=== PATIENT | male | born 2000 | race Asian ===

== ENCOUNTER 2020-07-14 14:04 | Observation (INO) ==
[2020-07-14] MEDS ORDERED: SODIUM CHLORIDE 0.9% 1000ML 500 ML IV ONE (14:22)
[2020-07-14] MEDS ORDERED: KETOROLAC 30 MG/ML VIAL IV ONE (14:22)
--- NOTE | 2020-07-14 14:27 | Emergency Department Note ---
Impression & Plan Primary spontaneous pneumothorax, Back pain ED Provider Note NAME: YOLI CAMARILLO AGE: 19 SEX: M : 2000 ARRIVES VIA: Walk-In INFORMANT: Patient ED PROVIDER(S): Yosi Busby DO CHIEF COMPLAINT: right upper back pain HPI: Patient is a 19-year-old male who presents the ER for right upper back pain. It started about 30 minutes prior to arrival. It is just medial to his scapula. It improves when he bends over worsened when he sits up straight or lays back. Certain movements of his arm also make it slightly worse. He notes that breathing makes it worse as well. He just recently traveled from [place] and drove all the way to [employer]. He notes he is dropping his sister off. He denies any shortness of breath or chest pain. No belly pain nausea vomiting or diarrhea. No cough or runny nose. Notes that initially it started as a burning pain and now describes as a sharp stabbing pain in nature. No other exacerbating or remitting factors. He is never had this before. ROS: See above HPI for pertinent positives & negatives. A total of 10 systems reviewed and were otherwise negative. PAST MEDICAL HISTORY:See Below PAST SURGICAL HISTORY:See Below FAMILY HISTORY:See Below SOCIAL HISTORY:See Below HOME MEDICATIONS:See Below ALLERGIES:See Below VITALS:See Below PHYSICAL EXAMINATION: GENERAL: Sitting up in bed, alert, well appearing, well nourished, no distress, non-toxic EYE EXAM: normal conjunctiva. OROPHARYNX: no exudate, no erythema, lips, buccal mucosa, and tongue normal and mucous membranes are moist NECK: supple, no nuchal rigidity, no adenopathy, non-tender LUNGS: Clear to auscultation. Normal chest wall mechanics HEART: no murmurs, S1 normal and S2 normal ABDOMEN: abdomen soft, non-tender, normo-active bowel sounds, no masses, no rebound or guarding. BACK: Back is symmetrical on inspection and there is no deformity, no midline tenderness, tenderness just medial to the right scapula. Pain worsened with movement and palpation. SKIN: no rashes and no bruising UPPER EXTREMITIES: Flexion-extension of the shoulders, elbows, wrist, grasp 5 out of 5. Radial pulse 2 out of 4. Gross sensation intact. LOWER EXTREMITIES: No pitting edema. NEURO EXAM: Normal sensorium, cranial nerves II-XII grossly intact, normal speech, no gross weakness of arms, no gross weakness of legs. MEDICAL DECISION MAKING: Patient is a 19-year-old male that presents the ER for right upper back pain. H e notes that the pain is pleuritic in nature. This occurred while he was driving. IV was established blood work was obtained. Labs show no significant leukocytosis or anemia. INR slightly up at 1.2. D-dimer was negative and a low risk patient. BMP with LFTs were unremarkable. Chest x-ray supports a right- sided pneumothorax which is small to moderate. X-rays of the thoracic spine were unremarkable. Discussed with pulmonology who reviewed the x-rays and agreed with holding on pneumothorax. Patient was already placed on nonrebreather. Discussed with the hospitalist admitted for further work-up. Triage Nursing notes reviewed. Prior medical records reviewed Vital Signs: reviewed and remarkable for no significant abnormalities Differential diagnosis: Differential diagnoses includes but is not limited to lumbar radiculopathy, kid sameera stone, muscle strain, facture, cauda equina, mass, and disc herniation. ER treatment provided: See below Diagnostics interpreted by me: ECG:Sinus rhythm n rate 66 Normal axis No PVCs Normal QTC Cardiac Monitoring: An order was placed for continuous cardiac monitoring. The monitor shows a rate of 69 with sinus rhythm. Laboratory studies: As stated above and show below. Imaging studies: X-rays as discussed above Consultation(s): Discussed with pulmonology/straight cutter machine who agreed with admission and holding chest tube Discussed with Dr. Shen Tran for admission ED COURSE: Procedures: none Critical Care: None Past Med/Surg History Medical History (Updated 07/14/20 @ 17:39 by Yosi Busby DO) No significant medical problems Surgical History (Updated 07/14/20 @ 17:12 by Shen Tran MD) No history of previous surgery Family History (Updated 07/14/20 @ 17:13 by Shen Tran MD) Father Gout Social History (Updated 07/14/20 @ 17:12 by Shen Tran MD) Smoking Status: Never smoker Hx Alcohol Use: No Hx Substance Use: No Preferred Language: Divehi Feels Safe at Home: Yes Allergies Allergies Allergy/AdvReac Type Severity Reaction Status Date / Time coconut Allergy Mild ITCHY MOUTH Verified 07/14/20 16:15 Home Meds Home Medications Medication Instructions Recorded Confirmed Gummy Vitamin Pack 12 tabs PO DAILY 07/14/20 07/14/20 Results & Data (ED) Vital Signs Vital Signs - 24 hr 07/14/20 14:06 07/14/20 14:49 07/14/20 15:55 Temperature 36.7 C Temperature Source Oral Pulse Rate 92 H 76 Pulse Rate from SpO2 Sensor 73 Pulse Rhythm Regular Respiratory Rate 18 18 21 Respiratory Effort / Characteristics Non-Labored Spontaneous Respiratory Depth Normal Respiratory Pattern Regular Blood Pressure 124/65 131/77 Blood Pressure Mean 84 88 Pulse Oximetry 100 100 Oxygen Delivery Method Room Air Oxygen Flow Rate Sepsis Recent Fever Within 48 Hours No Sepsis New/Unexplained Change in Mental Status No Sepsis Action Taken by Nursing No Action Required 07/14/20 15:57 07/14/20 16:00 07/14/20 16:01 Temperature Temperature Source Pulse Rate 73 80 71 Pulse Rate from SpO2 Sensor 74 82 72 Pulse Rhythm Respiratory Rate 15 17 17 Respiratory Effort / Characteristics Respiratory Depth Respiratory Pattern Blood Pressure 133/72 Blood Pressure Mean 83 Pulse Oximetry 100 100 100 Oxygen Delivery Method Non-rebreather Oxygen Flow Rate 15 Sepsis Recent Fever Within 48 Hours Sepsis New/Unexplained Change in Mental Status Sepsis Action Taken by Nursing 07/14/20 16:30 Temperature Temperature Source Pulse Rate 65 Pulse Rate from SpO2 Sensor 65 Pulse Rhythm Respiratory Rate 13 Respiratory Effort / Characteristics Respiratory Depth Respiratory Pattern Blood Pressure 103/66 Blood Pressure Mean 78 Pulse Oximetry 100 Oxygen Delivery Method Oxygen Flow Rate Sepsis Recent Fever Within 48 Hours Sepsis New/Unexplained Change in Mental Status Sepsis Action Taken by Nursing Laboratory Data Result diagrams: 07/14/20 14:30 07/14/20 14:30 Lab Results 07/14/20 07/14/20 07/14/20 Range/Units 14:30 14:30 14:30 WBC 6.41 (4.8-10.8) K/uL RBC 5.26 (4.7-6.1) M/uL Hgb 16.4 (14.0-18.0) g/dL Hct 46.4 (42-52) % MCV 88.2 (80-100) fL MCH 31.2 (25-34) pg MCHC 35.3 (32-36) g/dL RDW Std Deviation 38.9 (36.4-46.3) fL RDW Coeff of Ramon 12.1 (11.5-14.5) % Plt Count 307 (130-400) K/uL MPV 9.6 (7.4-10.4) fL Immature Gran % (Auto) 0.2 % Neut % (Auto) 63.3 % Lymph % (Auto) 29.3 % [place] % (Auto) 6.1 % Eos % (Auto) 0.8 % Baso % (Auto) 0.3 % Neut # (Auto) 4.06 (1.4-6.5) K/uL Lymph # (Auto) 1.88 (1.2-3.4) K/uL [place] # (Auto) 0.39 (0.11-0.59) K/uL Eos # (Auto) 0.05 (0-0.5) K/uL Baso # (Auto) 0.02 (0-0.2) K/uL Immature Gran # (Auto) 0.01 (0.00-0.02) K/uL PT 12.4 H (9.0-12.0) Seconds INR 1.2 H (0.9-1.1) D-Dimer < 190 (0-500) ug/L FEU Sodium 141 (136-145) mmol/L Potassium 3.8 (3.5-5.1) mmol/L Chloride 106 (98-107) mmol/L Carbon Dioxide 27 (21-32) mmol/L Anion Gap 8.0 (3-11) BUN 14 (7-18) mg/dl Creatinine 1.27 (0.6-1.4) mg/dl Est Cr Clr Drug Dosing 76.9 ml/min Est GFR ( Amer) 93.0 Est GFR (Non-Af Amer) 80.2 BUN/Creatinine Ratio 11.2 (10-20) Glucose 96 (70-99) mg/dl Calcium 9.8 (8.5-10.1) mg/dl Total Bilirubin 1.6 H (0.2-1) mg/dl AST 16 (15-37) U/L ALT 28 (12-78) U/L Alkaline Phosphatase 124 H (45-117) U/L Total Protein 8.0 (6.4-8.2) gm/dl Albumin 4.7 (3.4-5.0) gm/dl Globulin 3.3 (2.5-4.0) gm/dl Albumin/Globulin Ratio 1.4 (0.9-2) Administered Medications Discontinued Medications Sodium Chloride (Nss 1000ml) 500 mls @ 999 mls/hr IV .Q31M ONE Stop: 07/14/20 14:52 Last Infusion: 07/14/20 15:17 Dose: 0 mls/hr Documented by: [id number] Admin: 07/14/20 14:40 Dose: 999 mls/hr Documented by: [id number] Ketorolac Tromethamine (Ketorolac 30 Mg/Ml Vial) 30 mg IV NOW ONE Stop: 07/14/20 14:23 Last Admin: 07/14/20 14:41 Dose: 30 mg Documented by: [id number] Discharge Plan Visit Data Chief Complaint: Back Injury/Pain Stated Complaint: UPPER BACK PAIN ED Provider: Yosi Busby Discharge Problem: Primary spontaneous pneumothorax, Back pain Forms Stand Alone Forms: [employer] Prescriptions Prescriptions: No Action Gummy Vitamin Pack 12 tabs PO DAILY RF: 0 Discharge Problem: Back pain Qualifiers: Back pain location: thoracic back pain Chronicity: acute Back pain laterality: right Qualified Code(s): M54.6 - Pain in thoracic spine
[2020-07-14 14:52] LABS: Basophils # (auto) 0.02 K/uL (0-0.2); Basophils % (auto) 0.3 %; Eosinophils # (auto) 0.05 K/uL (0-0.5); Eosinophils % (auto) 0.8 %; Hematocrit (blood only) 46.4 % (42-52); Hemoglobin 16.4 g/dL (14.0-18.0); Immature Granulocytes # (auto) 0.01 K/uL (0.00-0.02); Immature Granulocytes % (auto) 0.2 %; Lymphocytes # (auto) 1.88 K/uL (1.2-3.4); Lymphocytes % (auto) 29.3 %; Mean Corpuscular Hemoglobin 31.2 pg (25-34); Mean Corpuscular Hgb Conc 35.3 g/dL (32-36); Mean Corpuscular Volume 88.2 fL (80-100); Mean Platelet Volume 9.6 fL (7.4-10.4); Monocytes # (auto) 0.39 K/uL (0.11-0.59); Monocytes % (auto) 6.1 %; Neutrophils # (auto) 4.06 K/uL (1.4-6.5); Neutrophils % (auto) 63.3 %; Platelet Count 307 K/uL (130-400); RDW Coefficient of Variation 12.1 % (11.5-14.5); RDW Standard Deviation 38.9 fL (36.4-46.3); Red Blood Count 5.26 M/uL (4.7-6.1); White Blood Count 6.41 K/uL (4.8-10.8)
[2020-07-14 15:05] LABS: D Dimer < 190 ug/L FEU (0-500); INR 1.2 (0.9-1.1); Prothrombin Time 12.4 Seconds (9.0-12.0)
--- NOTE | 2020-07-14 15:14 | Electrocardiogram Report ---
Test Reason : Blood Pressure : / mmHG Vent. Rate : 066 BPM Atrial Rate : 065 BPM P-R Int : 146 ms QRS Dur : 074 ms QT Int : 392 ms P-R-T Axes : -13 086 043 degrees QTc Int : 410 ms Poor data quality, interpretation may be adversely affected Normal sinus rhythm Normal ECG No previous ECGs available Confirmed by Eldon Dumont ([id number]) on 07/14/2020 3:13:45 PM Referred By: REFERRED SELF Confirmed By:Eldon Dumnot
--- NOTE | 2020-07-14 15:16 | XRay Report ---
XR chest 1V portable HISTORY: 19 years-old Male Chest Pain acute atypical chest pain COMPARISON: None TECHNIQUE: Portable AP view of the chest FINDINGS: Cardiomediastinal and hilar silhouettes are within normal limits. Right apical pneumothorax, pleural separation of 3.2 cm. Left lung is clear. No pleural effusion, airspace consolidation or overt pulmon jaswinder edema. Mild convex right curvature of the midthoracic spine. IMPRESSION: Right apical pneumothorax. No rib fracture identified. ACT 112: Negative or not required by law. The above report was generated using voice recognition software. It may contain grammatical, syntax o r spelling errors. Electronically signed by: Michael Arreola M.D. 07/14/2020 3:15 PM
[2020-07-14 15:25] LABS: Albumin Level 4.7 gm/dl (3.4-5.0); BUN Creatinine Ratio 11.2 (10-20); Calcium 9.8 mg/dl (8.5-10.1); Creatinine Clr Calc Pharmacy 76.9 ml/min; Est GFR (Non-African American) 80.2; Potassium 3.8 mmol/L (3.5-5.1)
--- NOTE | 2020-07-14 15:25 | XRay Report ---
XR thoracic spine 3V routine HISTORY: 19 years-old Male midline of scapula on right acute atypical chest pain COMPARISON: Chest radiograph 07/14/2020 TECHNIQUE: 3 views of the thoracic spine FINDINGS: Small right apical pneumothorax is better seen on chest radiograph of same day. Mild convex right cur vature of the upper to midthoracic spine. There is no acute fracture, subluxation or significant dege nerative change. IMPRESSION: 1. No acute fracture. 2. Right apical pneumothorax is better seen on chest radiograph of same day. ACT 112: Negative or not required by law. The above report was generated using voice recognition software. It may contain grammatical, syntax o r spelling errors. Electronically signed by: Michael Arreola M.D. 07/14/2020 3:24 PM
[2020-07-14 15:28] LABS: Albumin Globulin Ratio 1.4 (0.9-2); Bilirubin,Total 1.6 mg/dl (0.2-1); Globulin 3.3 gm/dl (2.5-4.0)
--- NOTE | 2020-07-14 17:10 | History & Physical Report ---
Date of Service July 14, 2020 Assessment & Plan (1) Primary spontaneous pneumothorax: Non-rebreathe 15L/min O2 Repeat chest x-ray 6 PM Suspect secondary to asthenic body habitus Consult pulmonology Admission and Anticipated Discharge Date Admission Date: 07/13/2020 History of Present Illness Chief Complaint: Right upper back pain Primary Care Provider: NO PCP Amira Gil is a 19-year-old male who presents to the ER with acute onset right upper back pain. This started 1/2 hours ago while driving to [facility] from [place], spontaneously while driving getting progressively worse. Sudden numbing pain to upper right back when changed to be sharp, worse on inspiration. Unable to give severity but notes it was "manageable". No recent trauma. He denies any cigarette, marijuana, cocaine. No prior history of lung disease. He denies any joint hypermobility or skin hyperextensibility. No family history of lung disease. His father has gout. Allergies Allergy/AdvReac Type Severity Reaction Status Date / Time coconut Allergy Mild ITCHY MOUTH Verified 07/14/20 16:15 Home Medications Home Medications Medication Instructions Recorded Confirmed Type Gummy Vitamin Pack 12 tabs PO DAILY 07/14/20 07/14/20 History Past Med/Surg History Medical History (Updated 07/14/20 @ 17:12 by Shen Tran MD) No significant medical problems Surgical History (Updated 07/14/20 @ 17:12 by Shen Tran MD) No history of previous surgery Family History (Updated 07/14/20 @ 17:13 by Shen Tran MD) Father Gout Social History (Updated 07/14/20 @ 17:12 by Shen Tran MD) Smoking Status: Never smoker Hx Alcohol Use: No Hx Substance Use: No Preferred Language: Citizen Of [place] Feels Safe at Home: Yes Review of Systems Review of Systems: All systems reviewed & are unremarkable except as noted in HPI & below Physical Exam Constitutional: well developed and well nourished; no acute distress Eyes: + anicteric sclerae; normal pupil size ENMT: external ear and nose normal, oropharynx normal Neck: trachea midline, no thyromegaly Respiratory: normal respiratory effort, lungs clear to auscultation Auscultation: lungs clear to auscultation bilaterally Cardiovascular: RRR, no murmur, no edema Gastrointestinal (Abdomen): normal bowel sounds, soft, nontender, no hepatosplenomegaly Skin: no rashes, warm and dry normal turgor Neurologic: moves all extremities and awake; not confused Psychiatric: A+Ox3, euthymic affect Lymphatic: no cervical lymphadenopathy Results & Data Results & Data ([facility]) Vital Signs (Past 12 Hours) Vital Signs Temp Pulse Resp BP Pulse Ox 07/14/20 16:30 65 13 103/66 100 07/14/20 16:01 71 17 100 07/14/20 16:00 80 17 133/72 100 07/14/20 15:57 73 15 100 07/14/20 15:55 76 21 131/77 100 07/14/20 14:49 18 07/14/20 14:06 36.7 C 92 H 18 124/65 100 Diagnostic Findings XR chest 1V portable IMPRESSION: Right apical pneumothorax. No rib fracture identified. XR chest 1V portable IMPRESSION: Right apical pneumothorax. No rib fracture identified. ECG Indication: back/shoulder pain Rate (beats per minute): 66 Rhythm: normal sinus Findings: no acute ischemic change Comparison ECG Date: no prior available Code Status & VTE Plan Code Status Full VTE Prophylaxis Plan VTE Prophylaxis will be ordered: No PG Care Time/CCT Total # of Minutes Spent Total Time Spent with Patient: Total time spent is greater than 50% in coordin ation of care (as documented) at patient's floor/unit and/or counseling patient: Coding Level of Care Code 61969 Initial Inpt Care Lvl 2 Diagnoses Primary spontaneous pneumothorax J93.11
--- NOTE | 2020-07-14 18:34 | XRay Report ---
XR chest 1V portable CLINICAL HISTORY: f/u ptx COMPARISON STUDY: Chest radiograph July 14, 2020 3:00 PM. FINDINGS: Moderate right pneumothorax with superior pleural separation of 3.1 cm is unchanged from pr evious chest radiograph. There is no left pneumothorax. Cardiac size is normal. Mediastinal contours are normal. Patient is mildly rotated. IMPRESSION: No change in a right apical pneumothorax. ACT 112: Negative or not required by law. Electronically signed by: Alexander Guzmán M.D. 07/14/2020 6:33 PM
[2020-07-14] MEDS ORDERED: ACETAMINOPHEN 325 MG TAB PO PRN (20:57)
--- NOTE | 2020-07-15 07:57 | XRay Report ---
XR chest 1V portable CLINICAL HISTORY: Pneumothorax. COMPARISON STUDY: Chest radiograph July 14, 2020 at 9:20 PM. FINDINGS: A right apical pneumothorax with superior pleural separation of 2.8 cm is noted. This is si milar to prior exam has slightly decreased since initial radiograph. There is no left pneumothorax. C ardiac size is normal. Mediastinal contours are normal. There is no consolidation. IMPRESSION: No significant change in a right apical pneumothorax since prior exam with slight decrea se in size since initial chest radiograph. ACT 112: Negative or not required by law. Electronically signed by: Alexander Guzmán M.D. 07/15/2020 7:55 AM
--- NOTE | 2020-07-15 09:20 | XRay Report ---
XR chest 1V portable HISTORY: pneumothorax COMPARISON: Chest 07/14/2020. FINDINGS: No significant change in the right apical pneumothorax which demonstrates a maximal pleural gap of 2.9 cm. The lungs are clear. The heart is normal in size. No pleural effusions. IMPRESSION: No change in the small right apical pneumothorax. ACT 112: Negative or not required by law. Electronically signed by: Ashutosh Toledo M.D. 07/15/2020 9:18 AM
--- NOTE | 2020-07-15 11:33 | Pulmonary Consultation ---
Date of Consultation July 15, 2020 Assessment & Plan (1) Primary spontaneous pneumothorax: 19-year-old previously healthy male presenting with primary spontaneous pneumothorax, only risk factor appears to be body habitus. primary spontaneous pneumothorax on the right sided - chest xr w/ improvement from 3.1 cm to 2.8 cm on repeat imaging - pain resolved, can use NSAID's for pain control - repeat outpatient chest XR in 3-5 days to ensure resolution - patient should avoid working out, flying, diving for two weeks after resolution of the pneumothorax with gradual re-introduction of activity - case complicated by the patient not living in [place] and discussed with patient that if there is return of symptoms that he will need to return to a ER Supervising Physician Co-Signing Physician Notes Pt seen and examined with resident physician. I agree with his a/p as noted aside for any additions/exceptions noted: No pmhx of ptx, asthma, tobacco abuse, marijauna or vaping. Likely primary spontaneous ptx. Recommend repeat cxr mid week by pcp to assure reexpansion. No need for intervention currently as he is able to ambulate in hallways without any dyspnea. Sats 97% on RA. Right apical ptx stable to slightly decreased in size. Okay to d/c home. Instructed to go to ER if increasing sob or pain. Thank you. 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 The pain was right sided deep to his mid scapula. The pain was described as numbness that progressively worsened. The pain was worse with inspiration. He was driving from [place] to [place] to drop off his sister, they were 30 minutes from [place] when the pain started. He was not coughing or in any specific position, just driving. He does not use tobacco, marijuana, or vape. He was not on any flights, or scuba diving, or lifting weights prior to this. He has no history of lung disease, or any family that has lung disease, or family who has developed a pneumothorax. He explained that he is not very flexible, no associated rashes or joint pain. Since coming to the hospital he has been on oxygen and initially received pain medication and had resolution of his pain at that time. He has not had any recurrence of his pain. Allergies Allergy/AdvReac Type Severity Reaction Status Date / Time coconut Allergy Mild ITCHY MOUTH Verified 07/14/20 16:15 Home Medications Home Medications Medication Instructions Recorded Confirmed Type Gummy Vitamin Pack 12 tabs PO DAILY 07/14/20 07/14/20 History Patient History Medical History (Updated 07/14/20 @ 17:39 by Yosi Busby DO) No significant medical problems Surgical History (Updated 07/14/20 @ 17:12 by Shen Tran MD) No history of previous surgery Family History (Updated 07/14/20 @ 17:13 by Shen Tran MD) Father Gout Social History (Updated 07/14/20 @ 17:12 by Shen Tran MD) Smoking Status: Never smoker Hx Alcohol Use: Yes Alcohol type: hard liquor Hx Substance Use: No Preferred Language: Croatian Communication Ability: Effective Roofer Required: No Beliefs That Will Affect Care: None Current Living Situation: Parent Feels Safe at Home: Yes Review of Systems Review of Systems: Constitutional: denies fevers, chills Cardiac: denies chest pain, palpitations Pulm: denies cough, shortness of breath, sputum production Neuro: denies headaches GI: denies n/v : denies urinary frequency, urgency, pain Physical Exam Constitutional: well developed, well nourished and + thin Eyes: PERRL, conjunctivae normal, anicteric sclerae ENMT: external ear and nose normal, oropharynx normal Neck: normal visual inspection Respiratory: - no increased work of breathing - no pleuritic pain with deep breath (described rumbling in chest) - lungs clear to auscultation bilaterally w/o wheezing, rhonchi, rales Cardiovascular: RRR, no murmur, no edema Skin: no rashes, warm and dry Psychiatric: A+Ox3, euthymic affect Results & Data Results & Data ([facility]) Vital Signs (Past 12 Hours) Vital Signs Temp Pulse Resp BP Pulse Ox 07/15/20 08:34 36.6 C 89 18 121/69 100 CBC Results Results Complete Blood Count Results: RBC 5.26 M/uL (4.7-6.1) 07/14/20 WBC 6.41 K/uL (4.8-10.8) 07/14/20 Hgb 16.4 g/dL (14.0-18.0) 07/14/20 Hct 46.4 % (42-52) 07/14/20 Plt Count 307 K/uL (130-400) 07/14/20 Chemistry ([facility]) Results [facility] Results: Sodium 141 mmol/L (136-145) 07/15/20 Potassium 3.9 mmol/L (3.5-5.1) 07/15/20 Chloride 109 mmol/L (98-107) H 07/15/20 BUN 13 mg/dl (7-18) 07/15/20 Creatinine 1.17 mg/dl (0.6-1.4) 07/15/20 Glucose 91 mg/dl (70-99) 07/15/20 Resident Activity Tracking Resident Involvement: Resident Care Provided Care Provided: Adult [facility]
[2020-07-15 13:48] LABS: Albumin Level 4.3 gm/dl (3.4-5.0); BUN Creatinine Ratio 11.3 (10-20); Bilirubin Direct 0.3 mg/dl (0-0.2); Calcium 9.3 mg/dl (8.5-10.1); Creatinine Clr Calc Pharmacy 85.3 ml/min; Est GFR (African American) 102.7; Est GFR (Non-African American) 88.6; Potassium 3.9 mmol/L (3.5-5.1)
[2020-07-15 13:54] LABS: Bilirubin,Total 2.1 mg/dl (0.2-1); Total Protein 7.4 gm/dl (6.4-8.2)
--- NOTE | 2020-07-15 23:37 | Billing Data ---
Date of Service July 15, 2020 Coding Level of Care Code 77279 Inpt Consult Level 5
--- NOTE | 2020-07-23 20:47 | Discharge Summary ---
Date of Service July 15, 2020 Admission HPI Per Admitting Provider Amira Gil is a 19-year-old male who presents to the ER with acute onset right upper back pain. This started 1/2 hours ago while driving to [facility] from [place], spontaneously while driving getting progressively worse. Sudden numbing pain to upper right back when changed to be sharp, worse on inspiration. Unable to give severity but notes it was "manageable". No recent trauma. He denies any cigarette, marijuana, cocaine. No prior history of lung disease. He denies any joint hypermobility or skin hyperextensibility. No family history of lung disease. His father has gout. Principal Diagnosis spontaneous pneumothorax Discharge Exam Constitutional: well developed and well nourished; no acute distress Eyes: + anicteric sclerae; normal pupil size ENMT: external ear and nose normal, oropharynx normal Neck: trachea midline, no thyromegaly Respiratory: normal respiratory effort, lungs clear to auscultation Auscultation: lungs clear to auscultation bilaterally Cardiovascular: RRR, no murmur, no edema Gastrointestinal (Abdomen): normal bowel sounds, soft, nontender, no hep atosplenomegaly Skin: no rashes, warm and dry normal turgor Neurologic: moves all extremities and awake; not confused Psychiatric: A+Ox3, euthymic affect Lymphatic: no cervical lymphadenopathy Discharge Data Allergies Allergy/AdvReac Type Severity Reaction Status Date / Time coconut Allergy Mild ITCHY MOUTH Verified 07/14/20 16:15 Consultations 07/14/20 16:10 ED Decision to Admit Stat 07/14/20 20:57 Consult Pulmonology Routine 07/15/20 13:27 Burn CD for patient Stat Hospital Course (1) Primary spontaneous pneumothorax: Non-rebreathe 15L/min O2 Repeat chest x-ray 6 PM Suspect secondary to asthenic body habitus Consult pulmonology Appreciate input. No pmhx of ptx, asthma, tobacco abuse, marijauna or vaping. Likely primary spontaneous ptx. Recommend repeat cxr mid week by pcp to assure reexpansion. No need for intervention currently as he is able to ambulate in hallways without any dyspnea. Sats 97% on RA. Right apical ptx stable to slightly decreased in size. Okay to d/c home. Instructed to go to ER if increasing sob or pain. Thank you. Total Time Total Time Spent Total Time Spent (In Minutes): 32 Total Time Includes: Examination of the Patient, Discharge Planning and Medication Reconciliation Discharge Plan Discharge Items Patient Disposition: Home - Self-Care Reason For Visit: PRIMARY SPONTANEOUS PNEUMOTHORAX Discharge Diagnosis: Primary spontaneous Pneumothorax Activity: Resume your previous activity Non-emergency contact: Primary Care Provider Call non-emergency contact if: you have any medication questions Follow-up/Referrals: PCP,NO [Primary Care Provider] - Diet: Regular Addtl Attending Provider Instructions: primary spontaneous pneumothorax on the right sided -Repeat chest x ray showed improvement. - pain resolved, can use NSAID's for pain control - repeat outpatient chest XR in 3-5 days to ensure resolution - patient should avoid working out, flying, diving for two weeks after resolution of the pneumothorax with gradual re-introduction of activity -if there is return of symptoms that he will need to return to a ER will need to repeat blood work in 1 week Pending Studies at Discharge: No Stand-Alone Forms: My [employer], Smoking Cessation Medications and DC Order Prescriptions: Continued Gummy Vitamin Pack 12 tabs PO DAILY RF: 0 Discharge Orders: Discharge Order (Routine); Ordered 07/15/20 Ordered By: Andrés Woodson Admission Data Admit Date/Time: 07/14/20 17:03 Attending Provider: Andrés Woodson Admit Provider: Shen Tran Primary Care Provider: PCP,NO Other Providers: Shen Tran ; Vaibhav Willoughby Other Interventions: Discharge Summary Assessment (RN) Last Done: 07/15/20 12:37 Coding Level of Care Code 30019 OBS Care - Discharge Diagnoses Primary spontaneous pneumothorax J93.11
== END 2020-07-15 14:24 | disposition home or self-care (01) ==
LOC: 2W 14:04 → ED 14:04 → SUATTDRO 17:03 → 2W 19:23